=== PATIENT | male | born 1955 | race Caucasian/White ===

== ENCOUNTER 2017-03-07 09:37 | Emergency (ER) | payer MEDICAID ==
[~2017-03-07] VITALS: Ht 182.9 cm; Wt 83.7 kg
[~2017-03-07 09:37] MED LIST: CLIN-5 PO; INSU100I25 SQ
[2017-03-07 10:27] VITALS: BP 132/85
== END 2017-03-07 10:28 | disposition home or self-care (01) ==
LOC: ER 09:38
DX: J06.9 Acute upper respiratory infection, unspecified (principal); E11.9 Type 2 diabetes mellitus without complications; Z79.4 Long term (current) use of insulin
CPT/HCPCS: 71046; 99284

== ENCOUNTER 2017-08-09 09:11 | Emergency (ER) | payer MEDICAID ==
[~2017-08-09] VITALS: Ht 182.9 cm; Wt 89.8 kg
[2017-08-09 09:13] VITALS: BP 178/88
[2017-08-09] MEDS ORDERED: LIDOcaine 1.5% w/epinephrine 1:200,000 5ml ampul IJ ONE (09:20)
[2017-08-09] MEDS ORDERED: TETanus/Pertussis (Acell)/Diphther VAC/PF (Tdap-Adult) 0.5ml syringe IM ONE (09:20)
[2017-08-09] MEDS ORDERED: SULF1TAB49 PO (09:54)
== END 2017-08-09 10:15 | disposition home or self-care (01) ==
LOC: ER 09:12
DX: L72.3 Sebaceous cyst (principal); L08.9 Local infection of the skin and subcutaneous tissue, unspecified; E11.9 Type 2 diabetes mellitus without complications; Z79.4 Long term (current) use of insulin; Z79.899 Other long term (current) drug therapy
CPT/HCPCS: 10060; 90471; 90715; 99283; A6449; J3490

== ENCOUNTER 2017-08-11 09:11 | Emergency (ER) | payer MEDICAID ==
[~2017-08-11] VITALS: Ht 185.4 cm; Wt 81.0 kg
[~2017-08-11 09:11] MED LIST changes: +SULF1TAB49 PO
[2017-08-11 09:15] VITALS: BP 122/77
== END 2017-08-11 09:34 | disposition home or self-care (01) ==
LOC: ER 09:12
DX: L02.212 Cutaneous abscess of back [any part, except buttock and flank] (principal); E11.9 Type 2 diabetes mellitus without complications; Z79.4 Long term (current) use of insulin
CPT/HCPCS: 99283; A6449

== ENCOUNTER 2019-03-05 19:05 | Emergency (ER) | payer MEDICAID ==
[~2019-03-05] VITALS: Ht 182.9 cm; Wt 87.2 kg
[~2019-03-05 19:05] MED LIST changes: -SULF1TAB49 PO
[2019-03-05 19:14] VITALS: BP 142/80
[2019-03-05] MEDS ORDERED: IBUP-1984 PO (20:25)
[2019-03-05] MEDS ORDERED: CEPH250T PO (20:26)
== END 2019-03-05 21:23 | disposition home or self-care (01) ==
LOC: ER 19:05
DX: L72.8 Other follicular cysts of the skin and subcutaneous tissue (principal); L02.413 Cutaneous abscess of right upper limb; E11.9 Type 2 diabetes mellitus without complications; Z98.890 Other specified postprocedural states; Z79.4 Long term (current) use of insulin
CPT/HCPCS: 10060; 99283

== ENCOUNTER 2019-03-13 08:44 | Emergency (ER) | payer MEDICAID ==
[~2019-03-13] VITALS: Ht 182.9 cm; Wt 86.4 kg
[~2019-03-13 08:44] MED LIST changes: +CEPH250T PO
[2019-03-13 08:48] VITALS: BP 183/87
[2019-03-13] MEDS ORDERED: LIDOcaine 1% W/epiNEPHrine 1:200,000 10ml vial IJ ONE (09:25)
== END 2019-03-13 10:13 | disposition home or self-care (01) ==
LOC: ER 08:45
DX: L72.3 Sebaceous cyst (principal); I10 Essential (primary) hypertension; E11.9 Type 2 diabetes mellitus without complications; Z86.14 Personal history of Methicillin resistant Staphylococcus aureus infection; Z98.890 Other specified postprocedural states; Z79.4 Long term (current) use of insulin; Z79.899 Other long term (current) drug therapy
CPT/HCPCS: 10060; 99283

== ENCOUNTER 2019-11-19 10:41 | Inpatient (IN) | payer MEDICAID ==
[~2019-11-19] VITALS: Ht 182.9 cm; Wt 82.0 kg
[~2019-11-19 10:41] MED LIST changes: -CEPH250T PO
[2019-11-19] MEDS ORDERED: vancomycin/NS 1 GM ADD-VANTAGE 250 ML IV ONE (11:25)
[2019-11-19] MEDS ORDERED: normal saline 1000ML IV soln IV ONE (11:25)
[2019-11-19] MEDS ORDERED: piperacillin/tazo 3.375gm/50ml 50 ML IV ONE (11:25)
[2019-11-19 11:53] LABS: BASOPHILS # (AUTO) 0.1 X10'3 (0-0.2); BASOPHILS % (AUTO) 0.5 % (0-1); EOSINOPHILS % (AUTO) 0.3 % (0-6); HEMATOCRIT 39.5 % (42.0-52.0); HEMOGLOBIN 13.7 g/dl (14.0-17.9); LYMPHOCYTES # (AUTO) 0.9 X10'3 (1.1-4.8); LYMPHOCYTES % (AUTO) 8.2 % (21-51); MEAN CORPUSCULAR HEMOGLOBIN 30.4 PG (27.0-31.0); MEAN CORPUSCULAR HGB CONC 34.6 g/dL (33.0-36.5); MEAN CORPUSCULAR VOLUME 87.8 FL (78-98); MEAN PLATELET VOLUME 7.4 FL (7.4-10.4); MONOCYTES # (AUTO) 0.8 X10'3 (0-0.9); MONOCYTES % (AUTO) 7.1 % (2-12); NEUTROPHILS % (AUTO) 83.9 % (42-75); PLATELET COUNT 284 X10'3 (140-440); RED CELL DISTRIBUTION WIDTH 13.2 % (11.5-14.5); WHITE BLOOD COUNT 10.7 X10'3 (4.5-11.0)
[2019-11-19 12:12] LABS: ALANINE AMINOTRANSFERASE 20 U/L (12-78); ALBUMIN 3.6 G/DL (3.4-5.0); ALBUMIN/GLOBULIN RATIO 0.9 (1.1-1.5); ALKALINE PHOSPHATASE 98 IU/L (46-116); ANION GAP 8 (8-16); ASPARTATE AMINO TRANSFERASE 10 U/L (10-37); BILIRUBIN,TOTAL 0.5 MG/DL (0.1-1.0); BLOOD UREA NITROGEN 14 MG/DL (7-18); CALCIUM 9.2 MG/DL (8.5-10.1); CHLORIDE 96 MMOL/L (99-107); GLUCOSE 373 MG/DL (70-104); POTASSIUM 4.4 MMOL/L (3.5-5.1); SODIUM 132 MMOL/L (135-145); TOTAL CARBON DIOXIDE 28.2 MMOL/L (24-32); TOTAL PROTEIN 7.6 G/DL (6.4-8.2); eGFR 75 ML/MIN
[2019-11-19] MEDS ORDERED: NO HOME MEDS (13:30)
--- NOTE | 2019-11-19 13:41 | NUR ---
Patient resting comfortably
[2019-11-19] MEDS ORDERED: potassium Cl 20 mEq SR tablet PO PRN ×2 (14:30)
[2019-11-19] MEDS ORDERED: magnesium Cl slow-release 64mg tablet PO PRN (14:30)
[2019-11-19] MEDS ORDERED: magnesium 4gm in 100ml NS 100 ML IV PRN (14:30)
[2019-11-19] MEDS ORDERED: acetaminophen 325mg tablet PO PRN ×2 (14:30)
[2019-11-19] MEDS ORDERED: morphine 2 MG/ML inj. syringe IV PRN (14:30)
[2019-11-19] MEDS ORDERED: magnesium 2GM in 50ml NS 50 ML IV PRN (14:30)
[2019-11-19] MEDS ORDERED: HYDROcodone/acetaminophen 5mg/325mg tablet PO PRN (14:30)
[2019-11-19] MEDS ORDERED: potassium CL 10mEq/100ml bag 100 ML IV PRN ×2 (14:30)
[2019-11-19] MEDS ORDERED: ondansetron/PF 4mg/2ml inj IV PRN (14:30)
[2019-11-19] MEDS ORDERED: HYDROcodone/acetaminophen 10/325mg tab PO PRN (14:30)
[2019-11-19] MEDS ORDERED: MESSAGE TO PHARMACY PO ONE (14:35)
[2019-11-19] MEDS ORDERED: dextrose ORAL solution 15 GM/59 ML bottle PO PRN (14:35)
[2019-11-19] MEDS ORDERED: glucagon, human recombinant 1mg kit SUBCUT PRN (14:35)
[2019-11-19] MEDS ORDERED: dextrose 50%-water 50ml dispensing syringe IV PRN ×2 (14:35)
[2019-11-19] MEDS ORDERED: vancomycin/NS 1 GM ADD-VANTAGE 250 ML X 1 DOSE IV SCH (15:00)
[2019-11-19 15:07] LABS: HEMOGLOBIN A1C 10.5 % (4.5-6.2)
[2019-11-19] MEDS: normal saline 1000ml 1,000 ML IV SCH (16:15)
[2019-11-19] MEDS: cefepime 1GM/NS ADD-VANTAGE 100 ML IV SCH (16:21)
--- NOTE | 2019-11-19 18:10 | NUR ---
Patient in room ORTHO 4006. I have received report from Ashlyn HART and had the opportunity to ask questions and assume patient care.
[2019-11-19 18:45] VITALS: BP 150/60
--- NOTE | 2019-11-19 18:48 | NUR ---
Problems reprioritized. Patient report given, questions answered & plan of care reviewed with Suyapa HART.
[2019-11-19] MEDS: K and/or MAG REPLACEMENT MC SCH (19:21)
[2019-11-19] MEDS: insulin Lispro (HumaLOG) vial - multi-dose SQ SCH (19:23)
[2019-11-19] MEDS: insulin glargine (Lantus) pen - multi-dose SQ SCH (21:05)
[2019-11-19 22:00] VITALS: BP 129/73
[2019-11-20] MEDS: cefepime 1GM/NS ADD-VANTAGE 100 ML IV SCH ×3 (00:06→16:38)
[2019-11-20] MEDS ORDERED: VANCOMYCIN LEVEL IV ONE (01:30)
[2019-11-20] MEDS: vancomycin/NS 1 GM ADD-VANTAGE 250 ML X 1 DOSE IV SCH ×2 (02:16→14:48)
[2019-11-20] MEDS: normal saline 1000ml 1,000 ML IV SCH (05:34)
[2019-11-20 06:00] VITALS: BP 121/56
--- NOTE | 2019-11-20 06:00 | NUR ---
PIV to right wrist discontinued r/t patient accidently tugging on the tubbing line. Tip to canula was intact.
[2019-11-20 06:15] LABS: ALBUMIN 2.6 G/DL (3.4-5.0); ANION GAP 6 (8-16); BLOOD UREA NITROGEN 9 MG/DL (7-18); CALCIUM 8.3 MG/DL (8.5-10.1); CHLORIDE 105 MMOL/L (99-107); CREATININE 0.69 MG/DL (0.60-1.10); GLUCOSE 134 MG/DL (70-104); MAGNESIUM 1.7 MG/DL (1.5-2.4); POTASSIUM 3.8 MMOL/L (3.5-5.1); SODIUM 139 MMOL/L (135-145); TOTAL CARBON DIOXIDE 27.8 MMOL/L (24-32); eGFR > 90 ML/MIN
[2019-11-20 06:24] LABS: BASOPHILS % (AUTO) 0.5 % (0-1); EOSINOPHILS # (AUTO) 0.1 X10'3 (0-0.9); EOSINOPHILS % (AUTO) 1.5 % (0-6); HEMATOCRIT 32.8 % (42.0-52.0); HEMOGLOBIN 11.4 g/dl (14.0-17.9); LYMPHOCYTES # (AUTO) 0.9 X10'3 (1.1-4.8); LYMPHOCYTES % (AUTO) 13.2 % (21-51); MEAN CORPUSCULAR HEMOGLOBIN 30.3 PG (27.0-31.0); MEAN CORPUSCULAR HGB CONC 34.6 g/dL (33.0-36.5); MEAN CORPUSCULAR VOLUME 87.6 FL (78-98); MEAN PLATELET VOLUME 7.5 FL (7.4-10.4); MONOCYTES # (AUTO) 0.7 X10'3 (0-0.9); MONOCYTES % (AUTO) 10.4 % (2-12); NEUTROPHILS # (AUTO) 4.9 X10'3 (1.8-7.7); NEUTROPHILS % (AUTO) 74.4 % (42-75); PLATELET COUNT 229 X10'3 (140-440); RED BLOOD COUNT 3.74 X10'6 (4.70-6.10); RED CELL DISTRIBUTION WIDTH 13.3 % (11.5-14.5); WHITE BLOOD COUNT 6.6 X10'3 (4.5-11.0)
--- NOTE | 2019-11-20 06:34 | NUR ---
Report given to Desiree HART.
[2019-11-20] MEDS: K and/or MAG REPLACEMENT MC SCH ×2 (08:00→20:00)
[2019-11-20 10:00] VITALS: BP 129/69
--- NOTE | 2019-11-20 10:50 | NUR ---
Pt stated he had BM 11-19-19 part diarrhea and part soft formed stool. HB-SN Addendum: 11/20/19 at 1052 by Dayami Beckwith STUDENT BRENDA Amended: Links added. Addendum: 11/20/19 at 1124 by Dayami GUTIERREZ charted on incorrect pt
--- NOTE | 2019-11-20 12:09 | NUR ---
Student documentation: I have reviewed all interventions, assessments performed and [facility] Student Medication Administration: For this medication-pass time frame, all medication were reviewed, dispensed, administered and documented per hospital policy by [facility].
--- NOTE | 2019-11-20 14:35 | NUR ---
PAGER ID: [phone] MESSAGE: Desiree Estrellita9 janay Gilbert 6521- received critical result positive blood cultures 25 hr gm positive cocci in clusters in aerobic bottle. On vanco and maxipime
--- NOTE | 2019-11-20 14:37 | NUR ---
DM Consult: A1C 10.5. Pt admit DX L foot/toe cellulitis hx T2DM though takes not meds at home per EMR. Pt seen by RD for written/verbal DM ed and verbal high protein ed w/ RD contact information provided. Glucerna ONS coupons provided as well. Pt reports has been in denial since initial DM DX, takes no meds at home, and has not received much DM diet ed previously. RD thoroughly reviewed DM guidelines and encouraged pt to contact dietitian's office if further questions. Per MECHANICAL ENGINEERING INTERN note no OR and WOC consult for wound management; WOC assessment pending at this time. PO 100% first meals; pt declines additional proteins/ONS at this time. Will f/u 11/24 for initial assessment. Will continue to monitor. Addendum: 11/20/19 at [address] Amended: Links added.
[2019-11-20] MEDS: insulin Lispro (HumaLOG) vial - multi-dose SQ SCH ×2 (14:45→18:48)
--- NOTE | 2019-11-20 15:46 | NUR ---
Student documentation: I have reviewed assessment performed and documented by Mercy BOWLING [facility].
[2019-11-20 18:00] VITALS: BP 129/64
[2019-11-20] MEDS: lactobacillus rhamnosus 10,000 MMU CELLS/CAPSULE PO SCH (21:26)
[2019-11-20] MEDS: insulin glargine (Lantus) pen - multi-dose SQ SCH (21:27)
[2019-11-20 22:00] VITALS: BP 114/57
[2019-11-21] MEDS: cefepime 1GM/NS ADD-VANTAGE 100 ML IV SCH ×3 (00:15→17:45)
[2019-11-21] MEDS ORDERED: VANCOMYCIN LEVEL IV ONE (01:30)
[2019-11-21 02:05] LABS: BASOPHILS # (AUTO) 0.1 X10'3 (0-0.2); BASOPHILS % (AUTO) 0.9 % (0-1); EOSINOPHILS # (AUTO) 0.1 X10'3 (0-0.9); EOSINOPHILS % (AUTO) 0.8 % (0-6); HEMATOCRIT 35.5 % (42.0-52.0); HEMOGLOBIN 12.2 g/dl (14.0-17.9); LYMPHOCYTES # (AUTO) 1.1 X10'3 (1.1-4.8); LYMPHOCYTES % (AUTO) 15.4 % (21-51); MEAN CORPUSCULAR HEMOGLOBIN 30.2 PG (27.0-31.0); MEAN CORPUSCULAR HGB CONC 34.3 g/dL (33.0-36.5); MEAN PLATELET VOLUME 7.3 FL (7.4-10.4); MONOCYTES # (AUTO) 0.9 X10'3 (0-0.9); MONOCYTES % (AUTO) 12.8 % (2-12); NEUTROPHILS # (AUTO) 5.1 X10'3 (1.8-7.7); NEUTROPHILS % (AUTO) 70.1 % (42-75); PLATELET COUNT 238 X10'3 (140-440); RED BLOOD COUNT 4.04 X10'6 (4.70-6.10); RED CELL DISTRIBUTION WIDTH 13.2 % (11.5-14.5); WHITE BLOOD COUNT 7.2 X10'3 (4.5-11.0)
[2019-11-21 02:13] LABS: ALBUMIN 2.7 G/DL (3.4-5.0); ANION GAP 8 (8-16); BLOOD UREA NITROGEN 12 MG/DL (7-18); BUN/CREATININE RATIO 17.9 (5.4-32.0); CALCIUM 8.9 MG/DL (8.5-10.1); CHLORIDE 104 MMOL/L (99-107); CREATININE 0.67 MG/DL (0.60-1.10); GLUCOSE 139 MG/DL (70-104); MAGNESIUM 1.6 MG/DL (1.5-2.4); POTASSIUM 3.9 MMOL/L (3.5-5.1); SODIUM 138 MMOL/L (135-145); TOTAL CARBON DIOXIDE 26.1 MMOL/L (24-32); eGFR > 90 ML/MIN
[2019-11-21] MEDS: vancomycin/NS 1 GM ADD-VANTAGE 250 ML X 1 DOSE IV SCH (02:22)
[2019-11-21 06:00] VITALS: BP 136/66
--- NOTE | 2019-11-21 06:36 | NUR ---
Patient in room ORTHO 4010. I have received report from Darrel and had the opportunity to ask questions and assume patient care.
--- NOTE | 2019-11-21 06:56 | NUR ---
reported to days. noted pt awaiting culture results
[2019-11-21] MEDS: lactobacillus rhamnosus 10,000 MMU CELLS/CAPSULE PO SCH ×2 (07:34→20:43)
[2019-11-21] MEDS: K and/or MAG REPLACEMENT MC SCH ×2 (08:49→20:00)
[2019-11-21] MEDS: insulin Lispro (HumaLOG) vial - multi-dose SQ SCH ×4 (09:11→20:51)
[2019-11-21 10:00] VITALS: BP 115/61
--- NOTE | 2019-11-21 12:19 | NUR ---
Student documentation: I have reviewed all interventions, assessments performed and documented by Dayami BOWLING.
[2019-11-21] MEDS: VANCOMYCIN 1,500MG inj. 1,500 MG in normal saline 500ml IV soln 300 ML IV SCH (14:01)
[2019-11-21] MEDS: normal saline 1000ml 1,000 ML IV SCH (14:30)
--- NOTE | 2019-11-21 15:12 | NUR ---
Student documentation: I have reviewed assessment performed and documented by Mercy BOWLING [facility].
[2019-11-21 18:00] VITALS: BP 119/62
--- NOTE | 2019-11-21 18:12 | NUR ---
Problems reprioritized. Patient report given, questions answered & plan of care reviewed with Suyapa.
[2019-11-21] MEDS: insulin glargine (Lantus) pen - multi-dose SQ SCH (20:55)
[2019-11-21 21:58] VITALS: BP 127/64
--- NOTE | 2019-11-21 22:00 | NUR ---
LATE ENTRY. REVIEWED AND AGREE WITH SRN ASSESSMENT FINDINGS
[2019-11-22] MEDS: cefepime 1GM/NS ADD-VANTAGE 100 ML IV SCH ×3 (00:05→16:03)
[2019-11-22] MEDS: VANCOMYCIN 1,500MG inj. 1,500 MG in normal saline 500ml IV soln 300 ML IV SCH ×2 (02:04→14:03)
[2019-11-22 06:00] VITALS: BP 129/66
--- NOTE | 2019-11-22 06:19 | NUR ---
Problems reprioritized. Patient report given, questions answered & plan of care reviewed with HAILEY Hunt.
--- NOTE | 2019-11-22 06:20 | NUR ---
Patient in room ORTHO 4006. I have received report from Suyapa and student Beena and had the opportunity to ask questions and assume patient care.
[2019-11-22 06:32] LABS: BASOPHILS % (AUTO) 0.5 % (0-1); EOSINOPHILS # (AUTO) 0.2 X10'3 (0-0.9); EOSINOPHILS % (AUTO) 2.5 % (0-6); HEMATOCRIT 36.9 % (42.0-52.0); HEMOGLOBIN 12.7 g/dl (14.0-17.9); LYMPHOCYTES # (AUTO) 1.3 X10'3 (1.1-4.8); LYMPHOCYTES % (AUTO) 19.8 % (21-51); MEAN CORPUSCULAR HEMOGLOBIN 29.8 PG (27.0-31.0); MEAN CORPUSCULAR HGB CONC 34.4 g/dL (33.0-36.5); MEAN CORPUSCULAR VOLUME 86.7 FL (78-98); MEAN PLATELET VOLUME 7.2 FL (7.4-10.4); MONOCYTES % (AUTO) 15.1 % (2-12); NEUTROPHILS # (AUTO) 4.2 X10'3 (1.8-7.7); NEUTROPHILS % (AUTO) 62.1 % (42-75); PLATELET COUNT 278 X10'3 (140-440); RED BLOOD COUNT 4.25 X10'6 (4.70-6.10); RED CELL DISTRIBUTION WIDTH 13.2 % (11.5-14.5); WHITE BLOOD COUNT 6.7 X10'3 (4.5-11.0)
[2019-11-22 06:34] LABS: ALBUMIN 2.8 G/DL (3.4-5.0); ANION GAP 7 (8-16); BLOOD UREA NITROGEN 13 MG/DL (7-18); BUN/CREATININE RATIO 17.3 (5.4-32.0); CALCIUM 9.1 MG/DL (8.5-10.1); CHLORIDE 105 MMOL/L (99-107); CREATININE 0.75 MG/DL (0.60-1.10); GLUCOSE 116 MG/DL (70-104); MAGNESIUM 1.7 MG/DL (1.5-2.4); POTASSIUM 3.9 MMOL/L (3.5-5.1); SODIUM 141 MMOL/L (135-145); TOTAL CARBON DIOXIDE 29.5 MMOL/L (24-32); eGFR > 90 ML/MIN
[2019-11-22] MEDS: K and/or MAG REPLACEMENT MC SCH ×2 (07:15→20:00)
[2019-11-22] MEDS: lactobacillus rhamnosus 10,000 MMU CELLS/CAPSULE PO SCH ×2 (07:50→19:07)
[2019-11-22] MEDS: insulin Lispro (HumaLOG) vial - multi-dose SQ SCH ×4 (08:26→21:14)
[2019-11-22 10:00] VITALS: BP 127/60
--- NOTE | 2019-11-22 10:18 | NUR ---
Gilbert [id number] Re: Thiago Gilbert Positive blood culture for MRSA. Positive wound Culture of 3rd toe for MRSA. Per Lab.
[2019-11-22 18:00] VITALS: BP 134/68
--- NOTE | 2019-11-22 18:06 | NUR ---
Problems reprioritized. Patient report given, questions answered & plan of care reviewed with Suyapa.
--- NOTE | 2019-11-22 18:33 | NUR ---
Patient in room ORTHO 4006. I have received report from HAILEY Hunt and had the opportunity to ask questions and assume patient care.
[2019-11-22] MEDS: insulin glargine (Lantus) pen - multi-dose SQ SCH (21:10)
[2019-11-22 22:00] VITALS: BP 130/71
[2019-11-23] MEDS ORDERED: VANCOMYCIN LEVEL IV ONE (01:30)
[2019-11-23 02:00] LABS: BASOPHILS # (AUTO) 0.1 X10'3 (0-0.2); BASOPHILS % (AUTO) 0.8 % (0-1); EOSINOPHILS # (AUTO) 0.1 X10'3 (0-0.9); EOSINOPHILS % (AUTO) 1.9 % (0-6); HEMATOCRIT 36.2 % (42.0-52.0); HEMOGLOBIN 12.7 g/dl (14.0-17.9); LYMPHOCYTES # (AUTO) 1.2 X10'3 (1.1-4.8); LYMPHOCYTES % (AUTO) 18.5 % (21-51); MEAN CORPUSCULAR HEMOGLOBIN 30.6 PG (27.0-31.0); MEAN CORPUSCULAR VOLUME 87.4 FL (78-98); MEAN PLATELET VOLUME 6.9 FL (7.4-10.4); MONOCYTES # (AUTO) 0.8 X10'3 (0-0.9); MONOCYTES % (AUTO) 11.8 % (2-12); NEUTROPHILS # (AUTO) 4.3 X10'3 (1.8-7.7); PLATELET COUNT 291 X10'3 (140-440); RED BLOOD COUNT 4.14 X10'6 (4.70-6.10); RED CELL DISTRIBUTION WIDTH 13.1 % (11.5-14.5); WHITE BLOOD COUNT 6.4 X10'3 (4.5-11.0)
[2019-11-23 02:19] LABS: ALBUMIN 2.8 G/DL (3.4-5.0); ANION GAP 3 (8-16); BLOOD UREA NITROGEN 16 MG/DL (7-18); C-REACTIVE PROTEIN 1.89 MG/DL (0.0-0.5); CHLORIDE 103 MMOL/L (99-107); CREATININE 0.84 MG/DL (0.60-1.10); GLUCOSE 112 MG/DL (70-104); MAGNESIUM 1.7 MG/DL (1.5-2.4); POTASSIUM 3.5 MMOL/L (3.5-5.1); SODIUM 138 MMOL/L (135-145); TOTAL CARBON DIOXIDE 32.2 MMOL/L (24-32); eGFR > 90 ML/MIN
[2019-11-23] MEDS: VANCOMYCIN 1,500MG inj. 1,500 MG in normal saline 500ml IV soln 300 ML IV SCH ×2 (02:22→15:42)
[2019-11-23] MEDS: normal saline 1000ml 1,000 ML IV SCH (02:33)
[2019-11-23 05:00] VITALS: BP 133/75
--- NOTE | 2019-11-23 06:36 | NUR ---
Problems reprioritized. Patient report given, questions answered & plan of care reviewed with HAILEY Lama and HAILEY Diaz student.
--- NOTE | 2019-11-23 06:40 | NUR ---
Patient in room ORTHO 4017. I have received report from Keely HART and had the opportunity to ask questions and assume patient care.
--- NOTE | 2019-11-23 06:52 | NUR ---
Patient in room ORTHO 4017. I have received report from Suyapa HART and had the opportunity to ask questions and assume patient care.
[2019-11-23] MEDS: lactobacillus rhamnosus 10,000 MMU CELLS/CAPSULE PO SCH ×2 (07:22→19:27)
[2019-11-23] MEDS: K and/or MAG REPLACEMENT MC SCH ×2 (08:00→20:00)
[2019-11-23] MEDS: insulin Lispro (HumaLOG) vial - multi-dose SQ SCH ×3 (08:13→19:26)
--- NOTE | 2019-11-23 08:31 | NUR ---
Insulin given by Emily BOWLING, 2 RN checks before administration completed. Charted under Student Nurse account.
[2019-11-23 10:18] VITALS: BP 138/71
[2019-11-23] MEDS ORDERED: GADOTERATE MEGLUMINE 7.5 MMOL/15 ML VIAL IV ONE (10:47)
--- NOTE | 2019-11-23 11:01 | NUR ---
Patient back from MRI
--- NOTE | 2019-11-23 16:06 | NUR ---
Wound care completed with Emily BOWLING. Patient tolerated well.
--- NOTE | 2019-11-23 16:06 | NUR ---
Student documentation: I have reviewed all interventions, assessments performed and documented by Emily BOWLING from [facility] 4th semester [employer]. Student Medication Administration: For all medication-pass' in the time frame of 9169-8570, all medication were reviewed, dispensed, administered and documented per hospital policy by Emily BOWLING from [facility] 4th semester [employer].
[2019-11-23] MEDS: dextrose ORAL solution 15 GM/59 ML bottle PO PRN (16:56)
[2019-11-23 18:00] VITALS: BP 126/68
--- NOTE | 2019-11-23 18:17 | NUR ---
Problems reprioritized. Patient report given, questions answered & plan of care reviewed with Ambrene HART.
--- NOTE | 2019-11-23 18:49 | NUR ---
Patient in room ORTHO 4017. I have received report from TOÑO AND STUDENT RN DANICA and had the opportunity to ask questions and assume patient care.
[2019-11-23] MEDS: insulin glargine (Lantus) pen - multi-dose SQ SCH (20:47)
[2019-11-23 22:00] VITALS: BP 132/69
[2019-11-24] MEDS: VANCOMYCIN 1,500MG inj. 1,500 MG in normal saline 500ml IV soln 300 ML IV SCH ×2 (02:52→14:40)
[2019-11-24 05:50] LABS: BASOPHILS % (AUTO) 0.5 % (0-1); EOSINOPHILS # (AUTO) 0.2 X10'3 (0-0.9); EOSINOPHILS % (AUTO) 2.1 % (0-6); HEMOGLOBIN 11.8 g/dl (14.0-17.9); LYMPHOCYTES # (AUTO) 1.4 X10'3 (1.1-4.8); LYMPHOCYTES % (AUTO) 19.8 % (21-51); MEAN CORPUSCULAR HEMOGLOBIN 29.8 PG (27.0-31.0); MEAN CORPUSCULAR HGB CONC 34.6 g/dL (33.0-36.5); MEAN CORPUSCULAR VOLUME 86.1 FL (78-98); MEAN PLATELET VOLUME 7.1 FL (7.4-10.4); MONOCYTES # (AUTO) 0.8 X10'3 (0-0.9); MONOCYTES % (AUTO) 10.9 % (2-12); NEUTROPHILS # (AUTO) 4.9 X10'3 (1.8-7.7); NEUTROPHILS % (AUTO) 66.7 % (42-75); PLATELET COUNT 289 X10'3 (140-440); RED BLOOD COUNT 3.94 X10'6 (4.70-6.10); RED CELL DISTRIBUTION WIDTH 13.3 % (11.5-14.5); WHITE BLOOD COUNT 7.3 X10'3 (4.5-11.0)
[2019-11-24 06:00] VITALS: BP 142/71
[2019-11-24 06:15] LABS: ALBUMIN 2.7 G/DL (3.4-5.0); ANION GAP 3 (8-16); BLOOD UREA NITROGEN 11 MG/DL (7-18); BUN/CREATININE RATIO 14.7 (5.4-32.0); CALCIUM 8.4 MG/DL (8.5-10.1); CHLORIDE 104 MMOL/L (99-107); CREATININE 0.75 MG/DL (0.60-1.10); GLUCOSE 113 MG/DL (70-104); MAGNESIUM 1.6 MG/DL (1.5-2.4); POTASSIUM 3.7 MMOL/L (3.5-5.1); SODIUM 137 MMOL/L (135-145); TOTAL CARBON DIOXIDE 29.7 MMOL/L (24-32); eGFR > 90 ML/MIN
--- NOTE | 2019-11-24 06:29 | NUR ---
Problems reprioritized. Patient report given, questions answered & plan of care reviewed with ROSEANN HART.
--- NOTE | 2019-11-24 06:30 | NUR ---
HOURLY ROUNDING NOTES: DOCUMENTED INFILTRATION OF PIV IN RFA. DC'D WITH CATH TIP NARROW AND INTACT. REPORTED THIS TO ONCOMING RN AND STUDENT RN
[2019-11-24] MEDS: lactobacillus rhamnosus 10,000 MMU CELLS/CAPSULE PO SCH ×2 (07:32→20:00)
[2019-11-24] MEDS: K and/or MAG REPLACEMENT MC SCH ×2 (07:49→20:00)
[2019-11-24] MEDS: insulin Lispro (HumaLOG) vial - multi-dose SQ SCH ×3 (08:28→18:46)
[2019-11-24 10:00] VITALS: BP 124/60
--- NOTE | 2019-11-24 12:05 | NUR ---
Student documentation: I have reviewed all interventions, assessments performed and documented by Dayami PALACIOS
--- NOTE | 2019-11-24 12:15 | NUR ---
Problems reprioritized. Patient report given, questions answered & plan of care reviewed with HAILEY Stock.
--- NOTE | 2019-11-24 14:30 | NUR ---
Patient in room ORTHO 4017. I have received report from Maribeth and had the opportunity to ask questions and assume patient care.
[2019-11-24 18:00] VITALS: BP 131/67
--- NOTE | 2019-11-24 18:14 | NUR ---
Problems reprioritized. Patient report given, questions answered & plan of care reviewed with
--- NOTE | 2019-11-24 20:35 | NUR ---
Patient in room ORTHO 4017. I have received report from TREY AT 1800 and had the opportunity to ask questions and assume patient care.
[2019-11-24] MEDS: insulin glargine (Lantus) pen - multi-dose SQ SCH (21:42)
[2019-11-24 22:00] VITALS: BP 127/65
[2019-11-25] MEDS: VANCOMYCIN 1,500MG inj. 1,500 MG in normal saline 500ml IV soln 300 ML IV SCH ×2 (01:58→14:00)
[2019-11-25 06:00] VITALS: BP 122/63
--- NOTE | 2019-11-25 06:10 | NUR ---
Problems reprioritized. Patient report given, questions answered & plan of care reviewed with TREY HART.
[2019-11-25 06:16] LABS: BASOPHILS % (AUTO) 0.4 % (0-1); EOSINOPHILS # (AUTO) 0.1 X10'3 (0-0.9); EOSINOPHILS % (AUTO) 1.6 % (0-6); HEMATOCRIT 34.8 % (42.0-52.0); HEMOGLOBIN 12.1 g/dl (14.0-17.9); LYMPHOCYTES # (AUTO) 1.3 X10'3 (1.1-4.8); LYMPHOCYTES % (AUTO) 18.8 % (21-51); MEAN CORPUSCULAR HEMOGLOBIN 29.8 PG (27.0-31.0); MEAN CORPUSCULAR HGB CONC 34.6 g/dL (33.0-36.5); MEAN CORPUSCULAR VOLUME 86.1 FL (78-98); MEAN PLATELET VOLUME 7.1 FL (7.4-10.4); MONOCYTES # (AUTO) 0.8 X10'3 (0-0.9); MONOCYTES % (AUTO) 10.5 % (2-12); NEUTROPHILS # (AUTO) 4.9 X10'3 (1.8-7.7); NEUTROPHILS % (AUTO) 68.7 % (42-75); PLATELET COUNT 302 X10'3 (140-440); RED BLOOD COUNT 4.05 X10'6 (4.70-6.10); RED CELL DISTRIBUTION WIDTH 13.3 % (11.5-14.5); WHITE BLOOD COUNT 7.1 X10'3 (4.5-11.0)
[2019-11-25 06:28] LABS: ALANINE AMINOTRANSFERASE 17 U/L (12-78); ALBUMIN 2.8 G/DL (3.4-5.0); ALBUMIN/GLOBULIN RATIO 0.8 (1.1-1.5); ALKALINE PHOSPHATASE 62 IU/L (46-116); ANION GAP 8 (8-16); ASPARTATE AMINO TRANSFERASE 10 U/L (10-37); BILIRUBIN,TOTAL 0.3 MG/DL (0.1-1.0); BLOOD UREA NITROGEN 12 MG/DL (7-18); BUN/CREATININE RATIO 16.9 (5.4-32.0); CALCIUM 8.3 MG/DL (8.5-10.1); CHLORIDE 105 MMOL/L (99-107); CREATININE 0.71 MG/DL (0.60-1.10); GLUCOSE 86 MG/DL (70-104); MAGNESIUM 1.8 MG/DL (1.5-2.4); POTASSIUM 3.7 MMOL/L (3.5-5.1); SODIUM 141 MMOL/L (135-145); TOTAL CARBON DIOXIDE 28.4 MMOL/L (24-32); TOTAL PROTEIN 6.2 G/DL (6.4-8.2); eGFR > 90 ML/MIN
[2019-11-25] MEDS: K and/or MAG REPLACEMENT MC SCH ×2 (08:00→19:28)
[2019-11-25] MEDS: lactobacillus rhamnosus 10,000 MMU CELLS/CAPSULE PO SCH ×2 (08:00→22:01)
[2019-11-25] MEDS: insulin Lispro (HumaLOG) vial - multi-dose SQ SCH ×4 (09:45→21:57)
[2019-11-25 11:00] VITALS: BP 130/70
[2019-11-25] MEDS: normal saline 1000ml 1,000 ML IV SCH (14:30)
--- NOTE | 2019-11-25 14:56 | NUR ---
Initial: Pt admit DX L foot cellulitis PO 100% avg carb controlled meals meeting needs. Double proteins TIDWM added for additional protein needs; dietary notified. LBM 11/20; CHARLETTE d/w RN regarding routine bowel care if MD agreeable since none yet this admit. Will continue to monitor. Rec: 1. continue carb controlled diet; double proteins TIDWM 2. routine bowel care 3. wt per rx Addendum: 11/25/19 at [address] Amended: Links added.
[2019-11-25] MEDS: dextrose ORAL solution 15 GM/59 ML bottle PO PRN (16:32)
--- NOTE | 2019-11-25 16:47 | NUR ---
[facility] LINE INFORMATION: REF: [id number] LOT: [id number] EXP: 07/03/2020
[2019-11-25 18:00] VITALS: BP 125/62
--- NOTE | 2019-11-25 18:29 | NUR ---
Problems reprioritized. Patient report given, questions answered & plan of care reviewed with Antoinette.
[2019-11-25] MEDS: insulin glargine (Lantus) pen - multi-dose SQ SCH (21:55)
[2019-11-25 22:00] VITALS: BP 127/67
[2019-11-26] MEDS: VANCOMYCIN 1,500MG inj. 1,500 MG in normal saline 500ml IV soln 300 ML IV SCH ×2 (02:59→14:29)
[2019-11-26 06:00] VITALS: BP 135/69
--- NOTE | 2019-11-26 06:00 | NUR ---
Patient in room ORTHO 4017. I have received report from Dayami and had the opportunity to ask questions and assume patient care.
--- NOTE | 2019-11-26 06:08 | NUR ---
REPORT GIVEN TO HAILEY YANG.
[2019-11-26 06:59] LABS: BASOPHILS % (AUTO) 0.4 % (0-1); EOSINOPHILS # (AUTO) 0.1 X10'3 (0-0.9); HEMATOCRIT 33.7 % (42.0-52.0); HEMOGLOBIN 11.7 g/dl (14.0-17.9); LYMPHOCYTES # (AUTO) 1.2 X10'3 (1.1-4.8); LYMPHOCYTES % (AUTO) 15.2 % (21-51); MEAN CORPUSCULAR HEMOGLOBIN 30.6 PG (27.0-31.0); MEAN CORPUSCULAR HGB CONC 34.6 g/dL (33.0-36.5); MEAN CORPUSCULAR VOLUME 88.3 FL (78-98); MEAN PLATELET VOLUME 7.2 FL (7.4-10.4); MONOCYTES # (AUTO) 0.8 X10'3 (0-0.9); MONOCYTES % (AUTO) 9.9 % (2-12); NEUTROPHILS # (AUTO) 5.9 X10'3 (1.8-7.7); NEUTROPHILS % (AUTO) 73.5 % (42-75); PLATELET COUNT 294 X10'3 (140-440); RED BLOOD COUNT 3.82 X10'6 (4.70-6.10); RED CELL DISTRIBUTION WIDTH 13.1 % (11.5-14.5); WHITE BLOOD COUNT 8.1 X10'3 (4.5-11.0)
[2019-11-26 07:10] LABS: ALANINE AMINOTRANSFERASE 18 U/L (12-78); ALBUMIN 2.7 G/DL (3.4-5.0); ALBUMIN/GLOBULIN RATIO 0.8 (1.1-1.5); ALKALINE PHOSPHATASE 61 IU/L (46-116); ANION GAP 6 (8-16); ASPARTATE AMINO TRANSFERASE 8 U/L (10-37); BILIRUBIN,TOTAL 0.3 MG/DL (0.1-1.0); BLOOD UREA NITROGEN 18 MG/DL (7-18); BUN/CREATININE RATIO 20.2 (5.4-32.0); CALCIUM 8.3 MG/DL (8.5-10.1); CHLORIDE 103 MMOL/L (99-107); CREATININE 0.89 MG/DL (0.60-1.10); GLUCOSE 178 MG/DL (70-104); MAGNESIUM 1.7 MG/DL (1.5-2.4); POTASSIUM 3.9 MMOL/L (3.5-5.1); SODIUM 138 MMOL/L (135-145); TOTAL CARBON DIOXIDE 29.5 MMOL/L (24-32); TOTAL PROTEIN 6.1 G/DL (6.4-8.2); eGFR 86 ML/MIN
[2019-11-26] MEDS: K and/or MAG REPLACEMENT MC SCH ×2 (08:00→20:00)
[2019-11-26] MEDS: lactobacillus rhamnosus 10,000 MMU CELLS/CAPSULE PO SCH ×2 (08:03→19:03)
[2019-11-26] MEDS: insulin Lispro (HumaLOG) vial - multi-dose SQ SCH ×3 (08:31→19:04)
[2019-11-26 11:04] VITALS: BP 119/69
--- NOTE | 2019-11-26 11:22 | NUR ---
Student documentation:I have reviewed and agree with all interventions, assessments performed and documented by Guido Ward.
--- NOTE | 2019-11-26 12:07 | NUR ---
Problems reprioritized. Patient report given, questions answered & plan of care reviewed with Dayami.
[2019-11-26 18:00] VITALS: BP 121/66
--- NOTE | 2019-11-26 18:20 | NUR ---
Problems reprioritized. Patient report given, questions answered & plan of care reviewed with Alina HART.
[2019-11-26] MEDS: insulin glargine (Lantus) pen - multi-dose SQ SCH (21:17)
[2019-11-26 22:00] VITALS: BP 135/68
[2019-11-27] MEDS: VANCOMYCIN 1,500MG inj. 1,500 MG in normal saline 500ml IV soln 300 ML IV SCH (02:18)
[2019-11-27 06:00] VITALS: BP 131/76
--- NOTE | 2019-11-27 06:14 | NUR ---
Problems reprioritized. Patient report given, questions answered & plan of care reviewed with Kiana HART.
--- NOTE | 2019-11-27 06:30 | NUR ---
received report from amparo lee
[2019-11-27] MEDS: K and/or MAG REPLACEMENT MC SCH (07:15)
[2019-11-27] MEDS: lactobacillus rhamnosus 10,000 MMU CELLS/CAPSULE PO SCH (07:25)
[2019-11-27] MEDS: insulin Lispro (HumaLOG) vial - multi-dose SQ SCH ×2 (08:25→13:08)
[2019-11-27 10:00] VITALS: BP 122/59
--- NOTE | 2019-11-27 12:58 | NUR ---
[facility]
--- NOTE | 2019-11-27 13:24 | NUR ---
TOOK D/C WOUND CARE PHOTOS RE-DRESSED WOUND WITH HONEY AND ALGINATE, GAUZE, CURLEX AND TAPE
--- NOTE | 2019-11-27 14:00 | NUR ---
pt d/c to [facility] accompanied by [employer] personnel in wheelchair w/all belongings and new dressing on left foot
[2019-11-28] MEDS ORDERED: VANCOMYCIN LEVEL IV ONE (01:30)
== END 2019-11-27 14:05 | DRG 720 ==
LOC: ER 10:41 → ED HOLD 14:30 → ORTHO 4S 16:00 → CMPBEDREQ 19:55 → ORTHO 4S 11-22 19:56
PROVIDERS: ADMIT Internal Medicine; ATTEND Internal Medicine
PROC: 0HBNXZZ Excision of Left Foot Skin, External Approach (ICD-10-PCS; 2019-11-20)
PROC: 02HV33Z Insertion of Infusion Device into Superior Vena Cava, Percutaneous Approach (ICD-10-PCS; principal; 2019-11-25)
PROC: B548ZZA Ultrasonography of Superior Vena Cava, Guidance (ICD-10-PCS; 2019-11-25)
DX: A41.02 Sepsis due to Methicillin resistant Staphylococcus aureus (principal); E11.69 Type 2 diabetes mellitus with other specified complication; E11.42 Type 2 diabetes mellitus with diabetic polyneuropathy; E11.628 Type 2 diabetes mellitus with other skin complications; L03.116 Cellulitis of left lower limb; M84.475A Pathological fracture, left foot, initial encounter for fracture; E11.65 Type 2 diabetes mellitus with hyperglycemia; F12.90 Cannabis use, unspecified, uncomplicated; M86.8X7 Other osteomyelitis, ankle and foot; Z96.642 Presence of left artificial hip joint; Z86.14 Personal history of Methicillin resistant Staphylococcus aureus infection; Z91.19 Patient's noncompliance with other medical treatment and regimen
CPT/HCPCS: 36415; 36573; 73660; 73720; 80048; 80053; 80202; 82948; 83036; 83605; 83735; 84145; 85025; 85651; 86140; 87040; 87070; 87075; 87077; 87081; 87186; 93005; 93306; 93922; 96365; 96367; 97116; 97161; 97530; 99285; A9575; G0378; J0692; J1815; J2543; J3370; J7030; J7040

== ENCOUNTER 2021-10-03 18:08 | Emergency (ER) | payer MEDICARE, MEDICAID ==
[~2021-10-03] VITALS: Ht 182.9 cm; Wt 79.5 kg
[~2021-10-03 18:08] MED LIST changes: -CLIN-5 PO; -INSU100I25 SQ; +NO HOME MEDS
[2021-10-03] MEDS ORDERED: LIDOcaine 1% W/epiNEPHrine 1:100,000 20ml vial SQ ONE (20:15)
[2021-10-03] MEDS ORDERED: SULF1TAB49 PO (21:02)
[2021-10-03] MEDS ORDERED: sulfamethoxazole/trimethoprim DS (800/160mg) tablet PO ONE (21:05)
[2021-10-03 21:26] VITALS: BP 150/72
== END 2021-10-03 21:28 | disposition home or self-care (01) ==
LOC: ER 18:09
DX: L02.212 Cutaneous abscess of back [any part, except buttock and flank] (principal); E11.9 Type 2 diabetes mellitus without complications; Z86.14 Personal history of Methicillin resistant Staphylococcus aureus infection; Z79.899 Other long term (current) drug therapy
CPT/HCPCS: 10060; 99283; A6222; A6258; A6449

== ENCOUNTER 2021-12-16 11:45 | Emergency (ER) | payer MEDICARE, MEDICAID ==
[~2021-12-16] VITALS: Ht 182.9 cm; Wt 81.8 kg
[2021-12-16 12:32] VITALS: BP 125/67
[2021-12-16] MEDS ORDERED: LIDOcaine 1% w/EPI 1:100,000 30ml vial (MDV) IJ ONE (14:15)
[2021-12-16] MEDS ORDERED: CEPH-585 PO (14:17)
[2021-12-16 15:49] LABS: HIV ANTIBODY 1&2 RAPID NON-REACTIVE (Neg)
== END 2021-12-16 15:57 | disposition home or self-care (01) ==
LOC: ER 11:45
DX: L02.212 Cutaneous abscess of back [any part, except buttock and flank] (principal); E11.9 Type 2 diabetes mellitus without complications; Z86.14 Personal history of Methicillin resistant Staphylococcus aureus infection; Z79.2 Long term (current) use of antibiotics
CPT/HCPCS: 10060; 36415; 80074; 86703; 99283; J7030; A6449

== ENCOUNTER 2022-06-16 13:28 | Emergency (ER) | payer MEDICARE, MEDICAID ==
[~2022-06-16] VITALS: Ht 182.9 cm; Wt 88.6 kg
[~2022-06-16 13:28] MED LIST changes: +CEPH-585 PO
[2022-06-16 17:09] VITALS: BP 146/84
--- NOTE | 2022-06-16 18:06 | NUR ---
Respiratory at bedside
[2022-06-16] MEDS ORDERED: AMOX-117 PO (18:15)
== END 2022-06-16 18:23 | disposition home or self-care (01) ==
LOC: ER 13:29
DX: J20.9 Acute bronchitis, unspecified (principal); E11.9 Type 2 diabetes mellitus without complications; Z86.14 Personal history of Methicillin resistant Staphylococcus aureus infection; Z79.899 Other long term (current) drug therapy
CPT/HCPCS: 71046; 99283